=== PATIENT | female | born 1980 | race African-American/Black ===

== ENCOUNTER 2019-02-23 02:54 | Inpatient (IN) | payer BC ==
[2019-02-23] VITALS (18 sets, daily range): BP systolic 101–142; BP diastolic 64–96
[~2019-02-23] VITALS: Ht 167.6 cm; Wt 80.7 kg
[2019-02-23 03:21] LABS: ABSOLUTE BASOPHILS 0.1 thou/uL (0.0-0.2); ABSOLUTE LYMPHOCYTES 1.7 thou/uL (0.8-5.3); ABSOLUTE MONOCYTES 0.6 thou/uL (0.0-1.2); ABSOLUTE NEUTROPHILS 3.9 thou/uL (1.6-8.1); EOSINOPHILS 0.7 %; HEMATOCRIT 37.4 % (37.0-47.0); HEMOGLOBIN 12.4 gm/dL (12.0-15.0); LYMPHOCYTES 27.6 %; MCH 32.3 pg (26.0-34.0); MCHC 33.1 g/dL (28.0-37.0); MCV 97.7 fL (80.0-100.0); MPV 7.9 fl. (7.2-11.1); NUCLEATED RBCS 0 /100WBC; PLATELET COUNT* 268 thou/uL (150-400); POLYS 61.7 %; RBC 3.83 mil/uL (4.20-5.00); RDW-CV 13.6 % (10.5-14.5); WBC 6.3 thou/uL (4.0-11.0)
[2019-02-23 03:30] LABS: ALBUMIN 3.9 g/dL (3.4-5.0); CALCIUM 8.9 mg/dL (8.5-10.1); CREATININE 0.9 mg/dL (0.6-1.3); POTASSIUM 3.3 mmol/L (3.5-5.1); TOTAL BILIRUBIN 0.4 mg/dL (<0.1-1.0); TOTAL PROTEIN 7.3 g/dL (6.4-8.2)
[2019-02-23 03:39] LABS: URINE BILIRUBIN NEGATIVE (Negative); URINE BLOOD 2+ (Negative); URINE CLARITY CLEAR; URINE COLOR YELLOW; URINE GLUCOSE-RANDOM NEGATIVE (Negative); URINE KETONES TRACE (Negative); URINE LEUKOCYTES-REFLEX NEGATIVE (Negative); URINE NITRITE-REFLEX NEGATIVE (Negative); URINE PROTEIN NEGATIVE (Negative); URINE SPECIFIC GRAVITY 1.025 (1.005-1.030); URINE UROBILINOGEN 0.2 E.U./dl (0.2-1.0)
[2019-02-23 03:43] LABS: ACETAMINOPHEN 172 ug/mL (10-30); ALCOHOL < 10 mg/dL (<10); SALICYLATE < 2.8 mg/dL (2.8-20.0)
[2019-02-23 03:48] LABS: AMP/METHAMP Negative (Negative); BARBITURATES Negative (Negative); BENZODIAZEPINES Negative (Negative); COCAINE Negative (Negative); METHADONE Negative (Negative); OPIATES Negative (Negative); PCP Negative (Negative); THC Negative (Negative)
[2019-02-23 05:01] LABS: CASTS None Seen /LPF (None Seen); SQUAMOUS >10 Many /LPF (0-3)
[2019-02-23 05:03] LABS: CRYSTALS None Seen /LPF (None Seen); MUCUS 4-6 Moderate strn/LPF (None Seen); URINE RBC 0-2 Rare /HPF (0-2); URINE WBC-REFLEX 0-5 Rare /HPF (0-5)
--- NOTE | 2019-02-23 05:20 | NUR ---
PATIENT REQUESTED TO BE A NO INFORMATION PATIENT.PATIENTS ARRIVED TO ED AND WAS TOLD PATIENT WAS NOT HERE. DR GARIBAY ASKED FOR PATIENT PERMISSION TO CALL AND NOTIFY HIM THAT PATIENT WAS HERE SO THAT PATIENTS WAS NOT DRIVING ALL OVER TOWN TRYING TO FIND PATIENT. PATIENT GAVE DR GARIBAY PERMISSION TO NOTIFY PATIENTS . DR GARIBAY DID CALL HIM AND INFORMED PATIENTS . PATIENT REQUESTED THAT NO ONE ELSE BE INFORMED OF PATIENTS PRESENCE AT [facility] FOLLOW UP MANAGER NOTIFIED AND RETURNED TO NO INFORMATION STATUS.
[2019-02-23 06:24] LABS: ALBUMIN 3.3 g/dL (3.4-5.0); CALCIUM 8.7 mg/dL (8.5-10.1); CREATININE 0.8 mg/dL (0.6-1.3); POTASSIUM 3.7 mmol/L (3.5-5.1); TOTAL BILIRUBIN 0.4 mg/dL (<0.1-1.0); TOTAL PROTEIN 6.8 g/dL (6.4-8.2)
--- NOTE | 2019-02-23 14:26 | EKG ---
[place] [address] ELECTROCARDIOGRAM REPORT Name: MARTIN JUNIORMÓNICA Syed Room: [address] ADM IN M.R.#: [id number] Admission: 02/23/19 Attend Phys: Rafael Crowder MD Discharge: Date of : 80 Report #: [id number] THIS REPORT FOR: //name// [facility] ED Test Date: 2019-02-23 Test Time: 05:09:11 Pat Name: MAIA JUNIOR Department: Room: [facility] Gender: F Social Media Community Manager: [place] : 1980 Requested By: Marta Thomas Order Number: [id number] MD: Otoniel Olguin Measurements Intervals [place] Rate: 70 P: 53 WA: 140 QRS: 92 QRSD: 93 T: 54 QT: 425 QTc: 459 Interpretive Statements Sinus rhythm Borderline right axis deviation No previous ECG available for comparison Electronically Signed On 02-23-2019 14:25:51 CDT by Otoniel Olguin [email or web address] <ELECTRONICALLY SIGNED> By: Star Olguin MD, [facility] 02/23/19 [id number] Star Olguin MD, [facility] /EPI
--- NOTE | 2019-02-23 18:09 | NUR ---
PT RECEIVED FROM ER AT 0720, A&O X4, CO-OPERATIVE AND DENIES ANY SUICIDAL IDEATION AT THE MOMENT. ACCEPTS THAT SHE TRIED HARMING HERSELF LAST NIGHT BECAUSE HER WANTS TO TAKE FULL CUSTODY OF HER CHILDREN AND TEARFUL. EMOTIONAL SUPPORT PROVIDED. 1:1 OBSERVATION MAINTAINED. ACETYLCYSTINE DRIP CONTD PER ORDERS, POISON CONTROL AWARE. DENIES NAUSEA/PAIN. TOLERATING DIET. VOIDING PER BSC. VSS.
[2019-02-24] VITALS (19 sets, daily range): BP systolic 108–137; BP diastolic 64–94
[2019-02-24 00:58] LABS: CREATININE 0.8 mg/dL (0.6-1.3); MAGNESIUM 1.7 mg/dL (1.8-2.4); POTASSIUM 3.2 mmol/L (3.5-5.1)
[2019-02-24 01:00] LABS: INR 1.3; PROTIME 13.3 Seconds (9.20-11.50)
[2019-02-24 01:04] LABS: ALBUMIN 2.9 g/dL (3.4-5.0); DIRECT BILIRUBIN 0.2 mg/dL (<0.1-0.3); TOTAL BILIRUBIN 1.2 mg/dL (<0.1-1.0)
--- NOTE | 2019-02-24 16:26 | NUR ---
VSS.DONOR RELATIONS MANAGER IN PLACE.PT REMAINS ON ROOM AIR.NO C/O PAIN.NO C/O N/V.PT PROGRESSING TOWARDS GOALS.SITTER MAINTAINED.SI PRECAUTIONS MAINTAINED.PT AND FAMILY INFORMED OF PLAN OF CARE AND COMMUNICATES UNDERSTANDING.PT MADE TELEMETRY STATUS.CALL LIGHT WITHIN REACH.WILL CONTINUE TO MONITOR FOR DURATION OF SHIFT.
--- NOTE | 2019-02-24 20:28 | NUR ---
RECEIVED REPORT AND ASSUMED CARE AT 1900. VSS. CARDIAC MONITORING IN PLACE. PT DENIES COMPLAINTS OF PAIN. ASSESSMENT COMPLETED CHARTED. PT UP WITH ASSIST TO BSC. ON RA. 1:1 SITTER FOR SAFETY. BED LOCKED IN LOWEST POSITION, CALL LIGHT WITHIN REACH.
[2019-02-25] VITALS: BP 112/83
[2019-02-25 04:00] VITALS: BP 113/79
[2019-02-25 05:13] LABS: INR 1.1; PROTIME 11.3 Seconds (9.20-11.50)
[2019-02-25 05:19] LABS: ALBUMIN 3.1 g/dL (3.4-5.0); DIRECT BILIRUBIN 0.2 mg/dL (<0.1-0.3); TOTAL BILIRUBIN 0.8 mg/dL (<0.1-1.0); TOTAL PROTEIN 6.2 g/dL (6.4-8.2)
--- NOTE | 2019-02-25 06:49 | NUR ---
PT TRANSFERED TO ROOM 227 FROM ICU DURING THIS SHIFT; VSS, SI WITH 1:1 SITTER, UP WITH ASSIST, DENIES PAIN, DENIES THE NEED FOR A WATER CUP. PT IS CONFIDENTIAL STATUS EXCEPT FOR .
[2019-02-25 08:15] VITALS: BP 123/83
--- NOTE | 2019-02-25 09:54 | NUR ---
Pt is A&O. Resides at home with her and kids. Independent. No DME. No hx of HH or SNF. Pt states that she and her are going through a divorce. Last evening, threatened to get full custody of their children at which point, Pt took too many pills. No hx of SI. Tele psych consult pending. Following to assist with disposition.
[2019-02-25 12:52] VITALS: BP 123/83
--- NOTE | 2019-02-25 13:24 | NUR ---
PATIENT 1:1 SITTER THIS AM. ALERT AND ORIENTED VERY PLESANT. NO INDICATIONS OF WANTING TO SELF HARM. TELE PYSCH MONITOR DOWN, PSYCH DOCTOR SPOKE WITH PATIENT ON THE PHONE, PER RECOMMENDATIONS PATIENT CLEARED TO GO HOME. DR. STRANGE OK FOR PATIENT TO DISCHARGE. IV DC'D. RESOURCES GIVEN TO PATIENT FOR OUTPATIENT THERAPY. PATIENT VERBALZES UNDERSTANDING OF DISCHARGE PAPERS. PATIENT AMBULATED OUT WITH ALL BELONGINGS OBTAINED FROM SECURITY.
--- NOTE | 2019-02-25 13:55 | NUR ---
Tele psych complete, Pt to dc to home today. CM provided Pt with outpt counseling services. No further needs.
== END 2019-02-25 13:28 | disposition home or self-care (01) | DRG 918 ==
LOC: M.ERS 02:54 → M.TBA-ER 06:44 → M.ICU 06:44 → M.ERS 07:18 → M.ICU 07:41 → M.2W 02-25 00:03
PROVIDERS: Emergency Medicine; Family Medicine; ADMIT Internal Medicine
DX: T39.1X2A Poisoning by 4-Aminophenol derivatives, intentional self-harm, initial encounter (principal); R45.851 Suicidal ideations; R73.9 Hyperglycemia, unspecified; Y92.89 Other specified places as the place of occurrence of the external cause